=== PATIENT | female | born 1980 | race Caucasian/White ===

== ENCOUNTER → 2017-11-12 | Outpatient (CLI) | payer BC, OTHER ==
[~2017-11-12] MED LIST: ACETAMINOPHEN325 M1 PO; AMBIEN 10 MG TA10 MG PO; APAP500 PO; ATIVAN1 MG PO; BACLOFEN 10MG T10 M1 PO; BUSPAR; CALCIUM 600 +1 EAC1 PO; CLONAZEPAM PO; DESYREL50 MG PO; FISH OIL 1,0001 EAC5 PO; FLEXERIL PO; HYDROCODON-ACE1 EAC5 PO; IBUPROFEN 600600 M1 PO; IRON PO; LANOLIN56 GM; LEXAPRO 10 MG T10 MG PO; LEXAPRO20 MG PO; MEDROLDOSEPACK PO; MOBIC15 MG PO; MULTIVITAMINS PO; NORCO 5-325 TA1 EACH PO; ORTHO-CYCLEN1 EACH PO; PRENATAL; RITALIN10 MG PO; VITAMINC500 PO; ZANAFLEX2 M1 PO; ZANAFLEX2 MG PO; ZANAFLEX4 M1 PO; ZOFRAN ODT4 MG PO; ZOFRAN4 MG PO
== END ==
LOC: ULTRA 06:09
DX: E04.1 Nontoxic single thyroid nodule (principal)